=== PATIENT | female | born 1990 | race Two or more races ===

== ENCOUNTER 2017-09-14 14:50 | Emergency (ER) | payer BC ==
[2017-09-14 14:59] VITALS: BP 128/73; PULSE 89; RESP 18; TEMP 97.4; O2SAT 99
[2017-09-14] MEDS ORDERED: Sodium Chloride 0.9% 1,000 ML IV STA (15:23)
--- NOTE | 2017-09-14 15:34 | ED PDOC ---
HPI: General Adult Time Seen by Provider: 09/14/17 15:13 Chief Complaint (Nursing): GI Problem Chief Complaint (Provider): GI Problem History Per: Patient History/Exam Limitations: no limitations Onset/Duration Of Symptoms: Days (x 1) Current Symptoms Are (Timing): Still Present Additional Complaint(s): Jewels is a 27 year old female, who is 8 weeks , presents to the emergency department complaining of lower pelivic pain across lower back, onset noon today. Patient states she vomited this morning, but is gone now. Denies vaginal bleeding, dysuria, chest pain, shortness of breath, dizziness, and headache. Has not had an ultrasound yet. PMD: Maya Medel OBGYN: Dr. Tyrone Johnson Past Medical History Reviewed: Historical Data, Nursing Documentation, Vital Signs Vital Signs: Last Vital Signs Temp 97.4 F L 09/14/17 14:57 Pulse 89 09/14/17 14:57 Resp 18 09/14/17 14:57 BP 128/73 09/14/17 14:57 Pulse Ox 99 09/14/17 16:08 - Medical History Other PMH: Hypothyroidism - Surgical History Surgical History: No Surg Hx - Family History Family History: States: Unknown Family Hx - Living Arrangements Living Arrangements: With Family - Social History Current smoker - smoking cessation education provided: No Alcohol: None Drugs: Denies - Allergies Allergies/Adverse Reactions: Allergies Allergy/AdvReac Type Severity Reaction Status Date / Time cephalexin [From Keflex] Allergy NAUSEA Verified 09/14/17 14:57 Review of Systems ROS Statement: Except As Marked, All Systems Reviewed And Found Negative Constitutional: Negative for: Other (Dizziness) Cardiovascular: Negative for: Chest Pain Respiratory: Negative for: Shortness of Breath Gastrointestinal: Positive for: Vomiting Genitourinary Female: Positive for: Pelvic Pain. Negative for: Dysuria, Vaginal Bleeding Neurological: Negative for: Headache Physical Exam - Reviewed Nursing Documentation Reviewed: Yes Vital Signs Reviewed: Yes - Physical Exam Appears: Positive for: Well, Non-toxic, No Acute Distress Head Exam: Positive for: ATRAUMATIC, NORMAL INSPECTION, NORMOCEPHALIC Skin: Positive for: Normal Color, Warm, DRY Eye Exam: Positive for: EOMI, Normal appearance, PERRL ENT: Positive for: Normal ENT Inspection Neck: Positive for: Normal Cardiovascular/Chest: Positive for: Regular Rate, Rhythm. Negative for: Murmur Respiratory: Positive for: Normal Breath Sounds. Negative for: Respiratory Distress Gastrointestinal/Abdominal: Positive for: Tenderness (Mild tenderness to epigastric region and suprapubic region noted) Back: Positive for: Normal Inspection. Negative for: L CVA Tenderness, R CVA Tenderness Extremity: Positive for: Normal ROM. Negative for: Deformity Neurologic/Psych: Positive for: Alert, Oriented - Laboratory Results Result Diagrams: 09/14/17 15:44 09/14/17 15:44 Interpretation Of Abn Labs: bhcg elevated Urine POC: Positive - ECG O2 Sat by Pulse Oximetry: 99 (RA) Pulse Ox Interpretation: Normal - CT Scan/US US Other Rad Studies (CT/US): Read By Radiologist Other Rad Interpretation: SLIUP - Progress ED Course And Treament: 1713: Stable. AAOx3. Pain free. Tolerated PO. Fu with pcp. Medical Decision Making Medical Decision Making: Time: 15:22 Impression: Evaluation of Plan: - Type and Screen - Beta-HCG, Quantitative - CMP - Lipase - CBC - OB Transvaginal - Sodium Chloride 0.9% 1,000 ml IV 1,000 mls/hr Scribe Attestation: Documented by Maulik Kelly, acting as a scribe for Davy Vyas MD Provider Scribe Attestation: All medical record entries made by the Scribe were at my direction and personally dictated by me. I have reviewed the chart and agree that the record accurately reflects my personal performance of the history, physical exam, medical decision making, and the department course for this patient. I have also personally directed, reviewed, and agree with the discharge instructions and disposition. Disposition - Clinical Impression Clinical Impression: Threatened - Patient ED Disposition Is Patient to be Admitted: No Counseled Patient/Family Regarding: Studies Performed, Diagnosis, Need For Followup - Disposition [facility] - [facility]17 Disposition: Routine/Home Disposition Time: 17:15 Condition: STABLE Additional Instructions: Return if not better in 3 days. Instructions: Threatened Miscarriage (ED)
[2017-09-14 15:49] LABS: BASO # 0.1 K/uL (0.0-0.2); BASO % 0.4 % (0.0-2.0); EOS # 0.3 K/uL (0.0-0.7); EOS % 2.7 % (0.0-4.0); HEMATOCRIT 36.5 % (34.0-47.0); LYMPH # 2.7 K/uL (1.0-4.3); LYMPH % 21.6 % (20.0-40.0); MEAN CORPUSCULAR HEMOGLOBIN 30.1 pg (27.0-31.0); MEAN CORPUSCULAR HGB CONC 32.7 g/dL (33.0-37.0); MEAN PLATELET VOLUME 8.5 fl (7.2-11.7); MONO # 0.8 K/uL (0.0-0.8); MONO % 6.8 % (0.0-10.0); NEUT # 8.5 K/uL (1.8-7.0); NEUT % 68.5 % (50.0-75.0); NRBC % 0.2 % (0.0-0.0); RED CELL DISTRIBUTION WIDTH 13.4 % (11.5-14.5); WHITE BLOOD COUNT 12.4 K/uL (4.8-10.8)
[2017-09-14 16:15] LABS: ALB/GLOB RATIO 1.1 (1.0-2.1); ALKALINE PHOSPHATASE 54 U/L (38-126); ALT/SGPT 37 U/L (9-52); AST/SGOT 28 U/L (14-36); BILIRUBIN,TOTAL 0.2 mg/dl (0.2-1.3); BLOOD UREA NITROGEN 8 mg/dl (7-17); CALCIUM 8.5 mg/dL (8.4-10.2); CARBON DIOXIDE 25 mmol/L (22-30); CHLORIDE 103 mmol/L (98-107); GFR AFRICAN-AMERICAN > 60; GLUCOSE,RANDOM 77 mg/dL (65-105); LIPASE 90 U/L (23-300); POTASSIUM 3.6 MMOL/L (3.6-5.0); SODIUM 137 mmol/l (132-148); TOTAL PROTEIN 7.3 G/DL (6.3-8.2)
--- NOTE | 2017-09-14 16:44 | US ---
PROCEDURE: First trimester ultrasound HISTORY: preg and pain Duration of symptoms: 6 hours LMP: 07/19/2017 Prior examinations from the current : None. TECHNIQUE: Real-time 2D imaging, duplex and color Doppler. FINDINGS: Cardiac activity: Present Rate: 173 BPM Measurements: [place] rump length: 1.15 cm Gestational age based on CRL 7 weeks 2 days Gestational age 9 weeks 1 day based on gestational sac measurement 3.91 cm Gestational age derived from LMP: 8 weeks 1 day GHISLAINE based on LMP: 04/25/2018 GHISLAINE based on biometry: 05/21/2018 Gestational concordance documented Yolk sac identified Uterus: Unremarkable. No Cervical abnormalities: Negative examination for cervical dilatation or effacement. Closed cervix measuring 3.52 cm Subchorionic hemorrhage: None UTERUS: 5.6 x 6.8 x 11.2 cm. ADNEXA: Right: 1.4 x 2 x 2.4 cm. Normal Doppler arterial waveform documented. Left: 1.6 x 1.8 x 2 cm. Normal Doppler arterial waveform documented Fluid in the cul-de-sac: None IMPRESSION: Eight weeks 2 days live intrauterine gestation. Gestational concordance documented.
== END 2017-09-14 17:56 | disposition home or self-care (01) ==
LOC: H.ER 14:50
DX: O20.0 Threatened abortion (principal); Z3A.08 8 weeks gestation of pregnancy; E03.9 Hypothyroidism, unspecified
CPT/HCPCS: 76815; 80053; 81025; 83690; 84702; 85025; 86850; 86900; 99284; J7040

== ENCOUNTER 2017-10-08 15:48 | Emergency (ER) | payer BC ==
[2017-10-08 16:42] VITALS: O2SAT 99
--- NOTE | 2017-10-08 18:44 | ED PDOC ---
HPI: General Adult Time Seen by Provider: 10/08/17 16:45 Chief Complaint (Nursing): Medical Clearance Chief Complaint (Provider): Sent by OB for US History Per: Patient History/Exam Limitations: no limitations Onset/Duration Of Symptoms: Days Have you had recent travel within the past 21 days to any of the following countries: [place], [place], [place] or [place]?: No Additional Complaint(s): Pt at 11 weeks gestation. Pt reports seeing OB this morning. Pt states her breasts Past Medical History Vital Signs: Last Vital Signs Temp 98.4 F 10/08/17 16:37 Pulse 88 10/08/17 16:37 Resp 16 10/08/17 16:37 BP 122/68 10/08/17 16:37 Pulse Ox 99 10/08/17 16:37 - Medical History PMH: Asthma, Hyperthyroidism - Family History Family History: States: Unknown Family Hx - Allergies Allergies/Adverse Reactions: Allergies Allergy/AdvReac Type Severity Reaction Status Date / Time cephalexin [From Keflex] Allergy NAUSEA Verified 10/08/17 16:36 - ECG O2 Sat by Pulse Oximetry: 99 Disposition - Clinical Impression Clinical Impression: -related symptom - Patient ED Disposition Is Patient to be Admitted: No Counseled Patient/Family Regarding: Diagnosis, Need For Followup - Disposition Disposition: Routine/Home Disposition Time: 18:40 Condition: GOOD Instructions: (ED)
[2017-10-08 18:49] VITALS: BP 124/78; PULSE 74; RESP 14; TEMP 98.8
--- NOTE | 2017-10-08 19:30 | US ---
EXAM: US First Trimester, Transabdominal CLINICAL HISTORY: 27 years old, female; Signs and symptoms; Lmp or gestational age (in weeks): 07/22/2017; Other: Non tender breast as per request/patient; ; Additional info: Breast not tender TECHNIQUE: Real-time transabdominal obstetrical ultrasound of the maternal pelvis and a first trimester with image documentation. COMPARISON: No relevant prior studies available. FINDINGS: Gestation: Single live intrauterine gestation. heart rate of 147 beats per minute. Estimated gestational age of 12 weeks 4 days by measurements. Placenta/amniotic fluid: Placenta: Posterior. No placental abruption. Amniotic fluid: Normal. Uterus/cervix: No subchorionic hemorrhage. No cervical dilatation or effacement. Ovaries: Not visualized. No adnexal masses. Free fluid: No significant free fluid. IMPRESSION: 1. Single live intrauterine gestation.
== END 2017-10-08 18:42 | disposition home or self-care (01) ==
LOC: H.ER 15:48
DX: Z33.1 Pregnant state, incidental (principal); O99.281 Endocrine, nutritional and metabolic diseases complicating pregnancy, first trimester; E05.90 Thyrotoxicosis, unspecified without thyrotoxic crisis or storm; Z3A.11 11 weeks gestation of pregnancy

== ENCOUNTER 2018-03-22 19:40 | Emergency (ER) | payer BC ==
[2018-03-22 19:50] VITALS: BMI 26.1
--- NOTE | 2018-03-22 20:55 | OBHP ---
Datetime: 03/22/2018 20:51 IP Adm Impression: , intrauterine IP Admit Plan: Observation/Evaluation; Discharge home Admit Comment, IP Provider: Patient is a @ 34.5 wks for rule out labor. Patient reports incr eased uterine contractions, no vaginal bleeding, no leaking, +FM. No antepartum issues, no medical pr oblems, Previous x 1, no dysuria, no allergies VE=closed/thick/high FHR = 125 mod cristian, +accels, no decels TOCO = Irregular contractions A/P 1. patient rulec out of for labor, discussed case and management with Dr. Johnson. patient to be discharged home, labor precautions given, F/U in office Pelvic Type - PN: Adequate Extremities - PN: Normal Abdomen - PN: Normal Back - PN: Normal Breast - PN: Normal Lungs - PN: Normal Heart - PN: Normal Thyroid - PN: Normal Neurologic - PN: Normal HEENT - PN: Normal General - PN: Normal FHR - Baseline A Provider: 125 Contraction Comments Provider: Irregular contractions EGA AdmitDate IP: 34.5 Vital Signs Provider: Reviewed; Within Normal Limits IP Chief Complaint: Uterine contractions NICHD Variability Prov Fetus A: Moderate 6-25bpm NICHD Accel Fetus A IP Provider: [id number] NICHD Decel Fetus A IP Provider: None Dilatation, Provider: closed Effacement, Provider: thick Station, Provider: -3 Genitourinary Exam: Normal DTRs - PN: Normal
--- NOTE | 2018-03-22 20:57 | OBDCSUM ---
Datetime: 03/22/2018 20:55 Discharged to, Provider: Home Follow up at, Provider: OB Disch Instr Activity: Normal activity Disch Instr Diet: Regular Discharge Instructions, Provider: Routine instructions given Discharge Time: 03/22/2018 20:55 Follow up in weeks, Provider: 1-2 wks Disch Referrals: None Contraception discussed, Prov: Yes Discharge Diagnosis Prov Other: false labor
[2018-03-23 02:44] VITALS: BP 110/66; PULSE 88; TEMP 98
== END 2018-03-22 21:05 | disposition home or self-care (01) ==
LOC: H.EROB2 19:40
DX: O47.03 False labor before 37 completed weeks of gestation, third trimester (principal); Z3A.34 34 weeks gestation of pregnancy